=== PATIENT | female | born 1990 | race Hispanic/Latino ===

== ENCOUNTER → 2021-11-17 | Outpatient (CLI) | payer BC ==
[~2021-11-17] MED LIST: CEFAZOLIN SODIUM 2 GM VIAL IV SCH; IBUP-1493 PO; PREN-202 PO
[2021-11-17 10:38] LABS: BASOPHILS % (AUTO) 0.7 % (0.0-5.0); EOSINOPHILS % (AUTO) 5.7 % (0.0-8.0); HEMATOCRIT 38.2 % (36-48); LYMPHOCYTES % (AUTO) 33.7 % (21.0-51.0); MEAN CORPUSCULAR HEMOGLOBIN 28.1 pg (27.0-33.0); MEAN CORPUSCULAR HGB CONC 31.9 g/dL (32.0-36.0); MONOCYTES % (AUTO) 12.8 % (3.0-13.0); NEUTROPHILS % (AUTO) 47.1 % (40.0-77.0); PLATELET COUNT (AUTO) 268 K/uL (130-400); RED BLOOD CELL COUNT(AUTO) 4.34 MIL/uL (4.00-5.50); RED CELL DISTRIBUTION WIDTH 13.2 % (11.0-15.5); WHITE BLOOD COUNT (AUTO) 4.2 K/uL (4.8-10.8)
== END | disposition home or self-care (01) ==
LOC: DAH 10:00 → EDSTATUS 11:00
PROVIDERS: ATTEND Specialist
DX: Z01.818 Encounter for other preprocedural examination (principal); R87.613 High grade squamous intraepithelial lesion on cytologic smear of cervix (HGSIL); U07.1 COVID-19
CPT/HCPCS: 36415; 84703; 85025; 87635; C9803

== ENCOUNTER 2021-12-21 08:22 | Day surgery (SDC) | payer BC ==
[2021-12-15 10:16] LABS: BASOPHILS % (AUTO) 0.7 % (0.0-5.0); EOSINOPHILS % (AUTO) 6.1 % (0.0-8.0); HEMATOCRIT 39.5 % (36-48); LYMPHOCYTES % (AUTO) 36.9 % (21.0-51.0); MEAN CORPUSCULAR HEMOGLOBIN 28.9 pg (27.0-33.0); MEAN CORPUSCULAR HGB CONC 32.2 g/dL (32.0-36.0); MONOCYTES % (AUTO) 5.4 % (3.0-13.0); NEUTROPHILS % (AUTO) 50.7 % (40.0-77.0); PLATELET COUNT (AUTO) 262 K/uL (130-400); RED BLOOD CELL COUNT(AUTO) 4.39 MIL/uL (4.00-5.50); RED CELL DISTRIBUTION WIDTH 13.2 % (11.0-15.5); WHITE BLOOD COUNT (AUTO) 5.4 K/uL (4.8-10.8)
[2021-12-20 08:28] VITALS: BP 118/73
[~2021-12-21] VITALS: Ht 160 cm; Wt 82.8 kg
[2021-12-21] VITALS (18 sets, daily range): BP systolic 101–130; BP diastolic 39–80
[2021-12-21] MEDS ORDERED: LACTATED RINGERS 1000ML 1,000 ML IV ONE (09:40)
[2021-12-21] MEDS ORDERED: ONDANSETRON 4MG INJ ONE (11:26)
[2021-12-21] MEDS ORDERED: MEPERIDINE-PF 25 MG/ML SYG ONE (11:29)
== END 2021-12-21 13:25 | disposition home or self-care (01) ==
LOC: DAH 08:22
PROVIDERS: ATTEND Specialist
DX: Z30.2 Encounter for sterilization (principal); Z30.432 Encounter for removal of intrauterine contraceptive device; Z20.822 Contact with and (suspected) exposure to COVID-19; D06.7 Carcinoma in situ of other parts of cervix; N72 Inflammatory disease of cervix uteri; N88.8 Other specified noninflammatory disorders of cervix uteri; E66.9 Obesity, unspecified; Z88.8 Allergy status to other drugs, medicaments and biological substances; Z79.899 Other long term (current) drug therapy; Z79.01 Long term (current) use of anticoagulants
CPT/HCPCS: 36415 ×2; 57520; 58301; 58671; 84703; 85025; 86850 ×2; 86900 ×2; 86901 ×2; 87635; A4215 ×2; A4216; A4221; A4222; A4223 ×2; A4351; A4663; A6251; A6260; C1769 ×3; C9803; J2175; J2405; J7030; J7120

== ENCOUNTER → 2021-12-21 | Outpatient (CLI) | payer BC ==
[~2021-12-21] MED LIST changes: -CEFAZOLIN SODIUM 2 GM VIAL IV SCH; +FENTANYL CITRATE PF 50 MCG/1 ML 2ML VIAL ONE; +GLYCOPYRROLATE 1 MG/5 ML SYRINGE ONE; -IBUP-1493 PO; +LIDOCAINE PF 100MG/5ML (2%) SYRINGE 5ML ONE; +MIDAZOLAM HCL 1 MG/ML 2ML VIAL ONE; +NEOSTIGMINE 5MG/5ML SYR IV ONE; -PREN-202 PO; +PROPOFOL 10 MG/ML 20ML VIAL IV ONE; +STRONG IODINE SOLN 14ML BOTTLE ONE; +VASOPRESSIN 20 UNITS/ML 1ML VIAL ONE
== END | disposition home or self-care (01) ==
LOC: DAH 10:00 → EDSTATUS 11:20
PROVIDERS: ATTEND Specialist
DX: Z30.2 Encounter for sterilization (principal); Z20.822 Contact with and (suspected) exposure to COVID-19; Z53.8 Procedure and treatment not carried out for other reasons
CPT/HCPCS: J2001; J2250; J2704; J2710; J3010 ×2; J3490 ×2